=== PATIENT | female | born 1980 | race Two or more races ===

== ENCOUNTER 2017-03-03 06:55 | Emergency (ER) | payer OTHER ==
--- NOTE | ~2017-03-03 | ER ---
PATIENT'S NAME: KEVIN BOLES [facility] AGE: 36 Y [address] ROOM: [place] [address] LOCATION: [facility] ADMIT DATE: 03/03/2017 ER/Outpatient Report DISCHARGE DATE: FAMILY PHYSICIAN: PHYSICIAN, NO ATTENDING PHYSICIAN: Albino Linda Admission date and time documented on the medical record. I saw the patient at 0705 hours. CHIEF COMPLAINT: Headache. HISTORY OF PRESENT ILLNESS: This patient is a 36-year-old female, comes in with left-sided headache, which she has had over the past 2 days. Worsened this morning. Did try ibuprofen at 0400 hours. Does have some chills, but no fever. No nausea, vomiting, or diarrhea. No urinary complaints. No lightheadedness, dizziness, syncope, or near syncope. No fall or trauma. No eyes, ears, nose, throat, neck, or spine pain. No recent colds, coughs, flus, fever, chills, or sweats. No chest pain or shortness of breath. No joint or muscle swelling, redness, or pain. No skin eruptions or rash. She does have a history of headaches. No other neuro changes. No psych issues. No endocrine problems. HOME MEDICATIONS: None. ALLERGIES: NONE. SOCIAL HISTORY: Nonsmoker and nondrinker. SIGNIFICANT PAST MEDICAL HISTORY: Headaches. OPERATIONS: Cholecystectomy. PHYSICAL EXAMINATION: VITAL SIGNS: Temperature 96.4, pulse 60, respirations 18, blood pressure 107/68, O2 saturation on room air is 97%. Fatimah Coma Scale was 15. HEAD: Normocephalic. EYES: Extraocular muscles intact. PERRL. Sclerae and conjunctivae clear and nonicteric. EARS, NOSE, THROAT: Clear. Mucous membranes moist. Teeth and jaw intact. PATIENT'S NAME: KEVIN BOLES [facility] AGE: 36 Y [address] ROOM: [place] [address] LOCATION: [facility] ADMIT DATE: 03/03/2017 ER/Outpatient Report DISCHARGE DATE: FAMILY PHYSICIAN: PHYSICIAN, NO ATTENDING PHYSICIAN: Albino Linda NECK: No nuchal rigidity. No findings of adenopathy. No tenderness. SPINE: Nontender. No deformity. LUNGS: Clear. Good air flow. No rales, rhonchi, or wheezes. HEART: Regular. Pulses are palpable. No chest wall or ribcage pain to palpation. ABDOMEN: Soft, nondistended, and nontender. Good bowel tones. No organomegaly or abnormal mass palpable. EXTREMITIES: No peripheral edema, cyanosis, or deformity. NEUROVASCULAR: Intact. SKIN: Clear. No skin eruptions or rash. LABORATORY DATA AND X-RAYS: CT scan of the head showed no intracranial bleed, midline shift, mass effect, or skull fracture. CT scan was read by Radiology, see dictated transcribed report. CMS was normal except for a low anion gap of 9.1, elevated glucose 104, low calcium of 8.4. White count 6900, 66 segs, 23 lymphs, 9 monos, 2 eos; hemoglobin is 13.2 with hematocrit 39.4; and platelet count 184,000. IMPRESSION: Headache. PLAN: I did give the patient IV normal saline, 1 L in the emergency department. Benadryl 50 mg IV in the emergency room followed in 10 minutes with Compazine 10 mg and Nubain 5 mg IV in the emergency department. The patient did do much better with treatment. Discharged home. Observation. Activity as tolerated. Continue present home medications and care. Fluids and diet as tolerated rest. Tylenol or ibuprofen two every 4 to 6 hours as needed. Follow up personal physician in 1 to 2 days or as needed. Discussion ensued with the patient through an service officer, she understands. MD YRN MACKEY/modl /[id number] d: 03/03/17900 t: 03/04/17 0608, OUTPATIENT REPORT
[~2017-03-03 06:55] MED LIST: NORCO 5-325 MG1 TAB PO
[2017-03-03 07:34] LABS: BASOPHIL % 0.3 %; EOSINOPHIL # 0.1 K/uL (0.0-0.5); EOSINOPHIL % 1.9 %; HEMATOCRIT 39.4 % (33.0-46.0); HEMOGLOBIN 13.2 g/dL (11.0-15.0); IMMATURE GRANULOCYTE % 0.1 %; LYMPHOCYTE # 1.6 K/uL (0.8-4.0); LYMPHOCYTE % 22.6 %; MCH 30.4 pg (27.0-34.0); MCHC 33.5 gm/dL (32.0-36.5); MCV 90.8 fl (83.0-98.0); MONOCYTE # 0.6 K/uL (0.0-1.0); MONOCYTE % 8.9 %; NEUTROPHIL # (ANC) 4.5 K/uL (1.8-7.8); NEUTROPHIL % 66.2 %; NRBC % 0 /100WBC (0-0.00); PLATELET COUNT 182 K/uL (150-450); RDW-CV 11.9 % (11.9-14.6); WBC 6.9 K/uL (4.0-11.0)
[2017-03-03 07:39] LABS: RBC 4.34 M/uL (3.50-5.50)
[2017-03-03 08:01] LABS: ALBUMIN 3.6 gm/dL (3.5-5.0); ALK PHOS 86 IU/L (33-138); ALT 28 IU/L (12-78); ANION GAP 9.1 (10.0-19.0); AST 22 IU/L (10-40); BLOOD UREA NITROGEN 8 mg/dL (6-24); CALCIUM 8.4 mg/dL (8.5-10.5); CHLORIDE 110 mMol/L (96-110); CO2 26 mMol/L (22-32); CREATININE 0.6 mg/dL (0.5-1.1); ESTIMATED GFR (MDRD EQUATION) > 60; POTASSIUM 4.1 mMol/L (3.7-5.1); SODIUM 141 mMol/L (135-145); TOTAL BILIRUBIN 0.2 mg/dL (0.0-1.5); TOTAL PROTEIN 7.6 g/dL (6.0-8.4)
== END 2017-03-03 08:45 | disposition disaster alternative care site (69) ==
LOC: GMED 06:55
PROVIDERS: Emergency Medicine
DX: R51 Headache (principal); Z90.49 Acquired absence of other specified parts of digestive tract
CPT/HCPCS: J0780; J1200; J2300; J7030